=== PATIENT | male | born 1940 | race Hispanic/Latino ===

== ENCOUNTER 2019-01-24 07:41 | Inpatient (IN) | payer MEDICARE, OTHER ==
[2019-01-20 10:15] LABS: BASOPHILS # (AUTO) 0.1 (0.0-0.1); EOSINOPHILS # (AUTO) 0.3 (0.0-0.4); EOSINOPHILS % 4.3 % (0.0-6.0); HEMATOCRIT 39.9 % (38.2-49.6); HEMOGLOBIN 13.1 g/dL (14.0-18.0); LYMPHOCYTES # (AUTO) 1.8 (1.0-3.2); LYMPHOCYTES % 23.8 % (18.0-39.1); MEAN CORPUSCULAR HEMOGLOBIN 31.3 pg (28-32); MEAN CORPUSCULAR HGB CONC 32.8 g/dL (31-35); MEAN CORPUSCULAR VOLUME 95.2 fL (81-99); MONOCYTES # (AUTO) 0.5 (0.2-0.8); MONOCYTES % 6.8 % (4.4-11.3); NEUTROPHILS # (AUTO) 4.8 (2.1-6.9); NEUTROPHILS % 62.8 % (38.7-80.0); PLATELET COUNT 145 x10e3/uL (140-360); RED BLOOD COUNT 4.19 x10e6/uL (4.3-5.7)
--- NOTE | 2019-01-20 10:30 | Diagnostic Imaging Report ---
EXAMINATION: CHEST 2 VIEWS INDICATION: Pre-operative COMPARISON: None FINDINGS: LINES/TUBES:None LUNGS:The lungs are well-inflated. No focal consolidation or pulmonary edema. PLEURA:No pleural effusion or pneumothorax. MEDIASTINUM:The cardiomediastinal silhouette appears normal in size and shape. Valvular prosthesis. Atherosclerotic calcifications of the thoracic aorta. BONES/SOFT TISSUES:No acute osseous injury. Sternotomy wires intact. ABDOMEN:No free air under the diaphragm. IMPRESSION: No focal pneumonia or pulmonary edema. Signed by: Angelito Bolton MD on 01/20/2019 10:26 AM
[2019-01-20 10:33] LABS: ANION GAP 13.3 mmol/L (8-16); CALCIUM 9.7 mg/dL (8.4-10.2); CREATININE, SERUM 1.29 mg/dL (0.72-1.25); POTASSIUM 4.3 mmol/L (3.5-5.1)
[~2019-01-24] VITALS: Ht 162.6 cm; Wt 76.2 kg
[~2019-01-24 07:41] MED LIST: AMLODIPINE BESYL5 MG PO; ATORVASTATIN CA10 MG PO; BENICAR20 MG PO; FLOMAX0.4 MG PO; FUROSEMIDE40 MG PO; VITAMIN D22000 UNIT PO
--- OUTSIDE RECORDS SUMMARY | 2019-01-24 07:45 | XMS REPORT ---
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 Allergies, Adverse Reactions, Alerts Allergy Name Allergy Type Status Severity Reaction(s) Onset Date Inactive Date Treating Clinician Comments No Known Allergies DA Active U 2018-12-02 00:00:00 No Known Allergies DA Active U 2014-10-21 00:00:00 Medications This patient has no known medications. Results Test Description Test Time Test Comments Text Results Atomic Results Result Comments CHEST 2 VIEWS 2019-01-20 10:24:00 [place] [address] Patient Name: LIZABETH MORGAN MR #: [id number] : 1940 Age/Sex: 78/M Req #: [id number] Adm Physician: Ordered by: SAMAN CONNOLLY MD Report #: [id number] Location: OR Room/Bed: Procedure: [id number] DX/CHEST 2 VIEWS Exam Date: Exam Time: REPORT STATUS: Signed EXAMINATION: CHEST 2 VIEWS INDICATION: Pre-operative COMPARISON: None FINDINGS: LINES/TUBES:None LUNGS:The lungs are well- inflated. No focal consolidation or pulmonary edema. PLEURA:No pleural effusion or pneumothorax. MEDIASTINUM:The cardiomediastinal silhouette appears normal in size and shape. Valvular prosthesis. Atherosclerotic calcifications of the thoracic aorta. BONES/SOFT TISSUES:No acute osseous injury. Sternotomy wires intact. ABDOMEN:No free air under the diaphragm. IMPRESSION: No focal pneumonia or pulmonary edema. Signed by: Davonte Colbert MD on 01/20/2019 10:26 AM Dictated By: DAVONTE COLBERT MD 1026 Transcribed By: KASHMIR on 01/20/19 1026 COPY TO: SAMAN CONNOLLY MD [facility] 2018-12-06 13:21:00 RUN DATE: 12/06/18 [place] [facility] PAGE 1 RUN TIME: 1321 Specimen Inquiry RUN USER: INTERFACE PATIENT: LIZABETH MORGAN LOC: [facility]BS U #: [id number] AGE/SX: 78/M ROOM: [facility] RE12/03/18REG DR: Trav Bolaños MD : 42 BED: B DIS: STATUS: ADM IN TLOC: SPEC #: [id number] RECD: 12/05/18 STATUS: YADIRA RODRIGUEZ #: [id number] CARLA: 12/03/18- SUBM DR: Nishant Méndez MD ENTERED: 12/05/18 SP TYPE: GALLBLADD OTHR DR: Jeremi Byers MD, David N MDORDERED: GROSS COPIES TO: Nishant Méndez MD [address] [place] [address] Jeremi Byers MD [address] [place] [address] Nishant Valle MD [address] [place] [address] MARKERS: ABNORMAL TISSUE, GALLBLADDER PROCEDURES: GROSS (12/06/18) TISSUES: GALLBLADDER, NOS CLINICAL HISTORY COLLECTION DATE: 12/03/18 ACUTE CHOLECYSTITIS FINAL DIAGNOSIS Gallbladder, cholecystectomy: CHOLELITHIASIS SEVERE ACUTE AND CHRONIC CHOLECYSTITIS NEGATIVE FOR MALIGNANCY DMW/sm A 54701 CONTINUED ON NEXT PAGE RUN DATE: 12/06/18 [place] [employer] [facility] PAGE 2 RUN TIME: 1321 Specimen Inquiry RUN USER: INTERFACE SPEC #: [id number] PATIENT: LIZABETH MORGAN #[id number] ([facility]) MACROSCOPIC The specimen is received in formalin, labeled with the patient's name, and identified as "gallbladder". It consists of a transected gallbladder measuring 7.3 x 3.8 x 2 cm. The serosal surface has a mottled appearance. Within the gallbladder and within the container are multiple black spiculated gallstones and black calciferous material. The gallstones measure from 0.1 to 0.4 cm. The gallbladder mucosa has a finely trabeculated appearance. The gallbladder wall measures up to 0.5 cm in thickness. Samples of the specimen are submitted for microscopic evaluation in a single cassette. GROSS PERFORMED AT [facility] [address] [place] [phone] (p)[phone] MICROSCOPIC All of the stains, including any controls performed, stain appropriately. MICROSCOPIC PERFORMED AT [facility] [address] [place] [phone] (p)[phone] PERFORMING SITE Diagnosis performed at: [facility], [place] [phone] Signed SIGNATURE ON FILE Sue Tamez MD 12/06/18 9221 END OF REPORT BASIC METABOLIC PANEL 2018-12-06 09:23:00 SODIUM (test code=NA) 143 mmol/L 136-145 POTASSIUM (test code=K) 4.2 mmol/L 3.5-5.1 CHLORIDE (test code=CL) 106.0 mmol/L 98-107 CARBON DIOXIDE (test code=CO2) 28.0 mmol/L 21-32 ANION GAP (test code=GAP) 13.2 10-20 GLUCOSE (test code=GLU) 118 mg/dL 74-106 BLOOD UREA NITROGEN (test code=BUN) 22 mg/dL 7-18 GLOMERULAR FILTRATION RATE (test code=GFR) 42 mL/min >=60 Estimated GFR by using Modified MDRD formula.Chronic kidney disease is defined as either kidney damageor GFR <60 mL/min/1.73 m2 for >3 months. CREATININE (test code=CREAT) 1.60 mg/dL 0.7-1.3 BUN/CREATININE RATIO (test code=BUN/CREA) 13.4 10-20 CALCIUM (test code=CA) 8.6 mg/dL 8.5-10.1 BASIC METABOLIC [id number] 09:08:00* Test Item Value Reference Range Comments SODIUM (test code=NA) 143 mmol/L 136-145 POTASSIUM (test code=K) 4.2 mmol/L 3.5-5.1 CHLORIDE (test code=CL) 106.0 mmol/L 98-107 CARBON DIOXIDE (test code=CO2) mmol/L 21-32 ANION GAP (test code=GAP) 10-20 GLUCOSE (test code=GLU) mg/dL 74-106 BLOOD UREA NITROGEN (test code=BUN) mg/dL 7-18 GLOMERULAR FILTRATION RATE (test code=GFR) mL/min >=60 CREATININE (test code=CREAT) mg/dL 0.7-1.3 BUN/CREATININE RATIO (test code=BUN/CREA) 10-20 CALCIUM (test code=CA) mg/dL 8.5-10.1 CBC W/AUTO [id number] 09:01:00* Test Item Value Reference Range Comments WHITE BLOOD CELL (test code=WBC) 6.1 K/mm3 4.5-12.5 RED BLOOD CELL (test code=RBC) 4.15 mill/mm3 4.0-5.8 HEMOGLOBIN (test code=HGB) 13.2 gram/dL 13.0-17.5 HEMATOCRIT (test code=HCT) 39.1 % 42.0-52.0 MEAN CELL VOLUME (test code=MCV) 94.2 fL 80-98 MEAN CELL HGB (test code=MCH) 31.8 picogram 27.0-33.0 MEAN CELL HGB CONCETRATION (test code=MCHC) 33.8 gram/dL 33.0-36.0 RED CELL DISTRIBUTION WIDTH (test code=RDW) 13.4 % 11.6-16.2 RED CELL DISTRIBUTION WIDTH SD (test code=RDW-SD) 46.2 fL 37.0-51.0 PLATELET COUNT (test code=PLT) 155 K/mm3 150-450 RESULT VERIFIED BY REPEAT ANALYSIS MEAN PLATELET VOLUME (test code=MPV) 11.3 fL 6.7-11.0 NEUTROPHIL % (test code=NT%) 61.8 % 39.0-69.0 IMMATURE GRANULOCYTE % (test code=IG%) 0.5 % 0.0-5.0 LYMPHOCYTE % (test code=LY%) 24.9 % 25.0-55.0 MONOCYTE % (test code=MO%) 7.9 % 0.0-10.0 EOSINOPHIL % (test code=EO%) 4.1 % 0.0-5.0 BASOPHIL % (test code=BA%) 0.8 % 0.0-1.0 NUCLEATED RBC % (test code=NRBC%) 0.0 % 0-0 NEUTROPHIL # (test code=NT#) 3.74 K/mm3 1.8-7.7 IMMATURE GRANULOCYTE # (test code=IG#) 0.03 x10 3/uL 0-0.03 LYMPHOCYTE # (test code=LY#) 1.51 K/mm3 1.0-5.0 MONOCYTE # (test code=MO#) 0.48 K/mm3 0-0.8 EOSINOPHIL # (test code=EO#) 0.25 K/mm3 0.0-0.5 BASOPHIL # (test code=BA#) 0.05 K/mm3 0.0-0.2 NUCLEATED RBC # (test code=NRBC#) 0.00 K/mm3 0.0-0.1 MANUAL DIFF REQUIRED (test code=MDIFF) NO BASIC METABOLIC [id number] 13:31:00* Test Item Value Reference Range Comments SODIUM (test code=NA) 137 mmol/L 136-145 POTASSIUM (test code=K) 4.1 mmol/L 3.5-5.1 CHLORIDE (test code=CL) 106.0 mmol/L 98-107 CARBON DIOXIDE (test code=CO2) 23.0 mmol/L 21-32 ANION GAP (test code=GAP) 12.1 10-20 GLUCOSE (test code=GLU) 100 mg/dL 74-106 BLOOD UREA NITROGEN (test code=BUN) 25 mg/dL 7-18 GLOMERULAR FILTRATION RATE (test code=GFR) 42 mL/min >=60 Estimated GFR by using Modified MDRD formula.Chronic kidney disease is defined as either kidney damageor GFR <60 mL/min/1.73 m2 for >3 months. CREATININE (test code=CREAT) 1.60 mg/dL 0.7-1.3 BUN/CREATININE RATIO (test code=BUN/CREA) 15.6 10-20 CALCIUM (test code=CA) 8.3 mg/dL 8.5-10.1 BASIC METABOLIC [id number] 13:29:00* Test Item Value Reference Range Comments SODIUM (test code=NA) 137 mmol/L 136-145 POTASSIUM (test code=K) 4.1 mmol/L 3.5-5.1 CHLORIDE (test code=CL) 106.0 mmol/L 98-107 CARBON DIOXIDE (test code=CO2) mmol/L 21-32 ANION GAP (test code=GAP) 10-20 GLUCOSE (test code=GLU) mg/dL 74-106 BLOOD UREA NITROGEN (test code=BUN) mg/dL 7-18 GLOMERULAR FILTRATION RATE (test code=GFR) mL/min >=60 CREATININE (test code=CREAT) mg/dL 0.7-1.3 BUN/CREATININE RATIO (test code=BUN/CREA) 10-20 CALCIUM (test code=CA) mg/dL 8.5-10.1 CBC W/O [id number] 13:03:00* Test Item Value Reference Range Comments WHITE BLOOD CELL (test code=WBC) 12.2 K/mm3 4.5-12.5 RED BLOOD CELL (test code=RBC) 4.11 mill/mm3 4.0-5.8 HEMOGLOBIN (test code=HGB) 13.1 gram/dL 13.0-17.5 HEMATOCRIT (test code=HCT) 37.8 % 42.0-52.0 MEAN CELL VOLUME (test code=MCV) 92.0 fL 80-98 MEAN CELL HGB (test code=MCH) 31.6 picogram 27.0-33.0 MEAN CELL HGB CONCETRATION (test code=MCHC) 34.4 gram/dL 33.0-36.0 RED CELL DISTRIBUTION WIDTH (test code=RDW) 12.9 % 11.6-16.2 PLATELET COUNT (test code=PLT) 116 K/mm3 150-450 MEAN PLATELET VOLUME (test code=MPV) 11.1 fL 6.7-11.0 CBC W/O [id number] 12:52:00* Test Item Value Reference Range Comments WHITE BLOOD CELL (test code=WBC) K/mm3 4.5-12.5 RED BLOOD CELL (test code=RBC) mill/mm3 4.0-5.8 HEMOGLOBIN (test code=HGB) 13.1 gram/dL 13.0-17.5 HEMATOCRIT (test code=HCT) % 42.0-52.0 MEAN CELL VOLUME (test code=MCV) fL 80-98 MEAN CELL HGB (test code=MCH) picogram 27.0-33.0 MEAN CELL HGB CONCETRATION (test code=MCHC) gram/dL 33.0-36.0 RED CELL DISTRIBUTION WIDTH (test code=RDW) % 11.6-16.2 PLATELET COUNT (test code=PLT) K/mm3 150-450 MEAN PLATELET VOLUME (test code=MPV) fL 6.7-11.0 BASIC METABOLIC [id number] 05:30:00* Test Item Value Reference Range Comments SODIUM (test code=NA) 139 mmol/L 136-145 POTASSIUM (test code=K) 4.4 mmol/L 3.5-5.1 CHLORIDE (test code=CL) 105.0 mmol/L 98-107 CARBON DIOXIDE (test code=CO2) 24.0 mmol/L 21-32 ANION GAP (test code=GAP) 14.4 10-20 GLUCOSE (test code=GLU) 108 mg/dL 74-106 BLOOD UREA NITROGEN (test code=BUN) 18 mg/dL 7-18 GLOMERULAR FILTRATION RATE (test code=GFR) 45 mL/min >=60 Estimated GFR by using Modified MDRD formula.Chronic kidney disease is defined as either kidney damageor GFR <60 mL/min/1.73 m2 for >3 months. CREATININE (test code=CREAT) 1.50 mg/dL 0.7-1.3 BUN/CREATININE RATIO (test code=BUN/CREA) 12.2 10-20 CALCIUM (test code=CA) 9.1 mg/dL 8.5-10.1 BASIC METABOLIC [id number] 05:26:00* Test Item Value Reference Range Comments SODIUM (test code=NA) 139 mmol/L 136-145 POTASSIUM (test code=K) 4.4 mmol/L 3.5-5.1 CHLORIDE (test code=CL) 105.0 mmol/L 98-107 CARBON DIOXIDE (test code=CO2) mmol/L 21-32 ANION GAP (test code=GAP) 10-20 GLUCOSE (test code=GLU) mg/dL 74-106 BLOOD UREA NITROGEN (test code=BUN) mg/dL 7-18 GLOMERULAR FILTRATION RATE (test code=GFR) mL/min >=60 CREATININE (test code=CREAT) mg/dL 0.7-1.3 BUN/CREATININE RATIO (test code=BUN/CREA) 10-20 CALCIUM (test code=CA) mg/dL 8.5-10.1 CBC W/AUTO [id number] 05:25:00* Test Item Value Reference Range Comments WHITE BLOOD CELL (test code=WBC) 9.3 K/mm3 4.5-12.5 RED BLOOD CELL (test code=RBC) 4.57 mill/mm3 4.0-5.8 HEMOGLOBIN (test code=HGB) 14.5 gram/dL 13.0-17.5 HEMATOCRIT (test code=HCT) 42.4 % 42.0-52.0 MEAN CELL VOLUME (test code=MCV) 92.8 fL 80-98 MEAN CELL HGB (test code=MCH) 31.7 picogram 27.0-33.0 MEAN CELL HGB CONCETRATION (test code=MCHC) 34.2 gram/dL 33.0-36.0 RED CELL DISTRIBUTION WIDTH (test code=RDW) 13.0 % 11.6-16.2 RED CELL DISTRIBUTION WIDTH SD (test code=RDW-SD) 44.2 fL 37.0-51.0 PLATELET COUNT (test code=PLT) 94 K/mm3 150-450 MEAN PLATELET VOLUME (test code=MPV) 11.2 fL 6.7-11.0 NEUTROPHIL % (test code=NT%) 70.0 % 39.0-69.0 IMMATURE GRANULOCYTE % (test code=IG%) 0.6 % 0.0-5.0 LYMPHOCYTE % (test code=LY%) 17.3 % 25.0-55.0 MONOCYTE % (test code=MO%) 11.1 % 0.0-10.0 EOSINOPHIL % (test code=EO%) 0.4 % 0.0-5.0 BASOPHIL % (test code=BA%) 0.6 % 0.0-1.0 NUCLEATED RBC % (test code=NRBC%) 0.0 % 0-0 NEUTROPHIL # (test code=NT#) 6.47 K/mm3 1.8-7.7 IMMATURE GRANULOCYTE # (test code=IG#) 0.06 x10 3/uL 0-0.03 LYMPHOCYTE # (test code=LY#) 1.60 K/mm3 1.0-5.0 MONOCYTE # (test code=MO#) 1.03 K/mm3 0-0.8 EOSINOPHIL # (test code=EO#) 0.04 K/mm3 0.0-0.5 BASOPHIL # (test code=BA#) 0.06 K/mm3 0.0-0.2 NUCLEATED RBC # (test code=NRBC#) 0.00 K/mm3 0.0-0.1 CBC W/AUTO [id number] 05:14:00* Test Item Value Reference Range Comments WHITE BLOOD CELL (test code=WBC) K/mm3 4.5-12.5 RED BLOOD CELL (test code=RBC) mill/mm3 4.0-5.8 HEMOGLOBIN (test code=HGB) 14.5 gram/dL 13.0-17.5 HEMATOCRIT (test code=HCT) 42.4 % 42.0-52.0 MEAN CELL VOLUME (test code=MCV) fL 80-98 MEAN CELL HGB (test code=MCH) picogram 27.0-33.0 MEAN CELL HGB CONCETRATION (test code=MCHC) gram/dL 33.0-36.0 RED CELL DISTRIBUTION WIDTH (test code=RDW) % 11.6-16.2 RED CELL DISTRIBUTION WIDTH SD (test code=RDW-SD) fL 37.0-51.0 PLATELET COUNT (test code=PLT) K/mm3 150-450 MEAN PLATELET VOLUME (test code=MPV) fL 6.7-11.0 NEUTROPHIL % (test code=NT%) % 39.0-69.0 IMMATURE GRANULOCYTE % (test code=IG%) % 0.0-5.0 LYMPHOCYTE % (test code=LY%) % 25.0-55.0 MONOCYTE % (test code=MO%) % 0.0-10.0 EOSINOPHIL % (test code=EO%) % 0.0-5.0 BASOPHIL % (test code=BA%) % 0.0-1.0 NEUTROPHIL # (test code=NT#) K/mm3 1.8-7.7 LYMPHOCYTE # (test code=LY#) K/mm3 1.0-5.0 MONOCYTE # (test code=MO#) K/mm3 0-0.8 EOSINOPHIL # (test code=EO#) K/mm3 0.0-0.5 BASOPHIL # (test code=BA#) K/mm3 0.0-0.2 [id number] 18:02:00* Test Item Value Reference Range Comments TROPONIN-I (test code=TROPI) <0.015 ng/mL 0-0.045 COMMENTS TO SEED AND FERTILIZER SPECIALIST: COLLECT 3 HOURS AFTER PREVIOUS [id number] 14:04:00* Test Item Value Reference Range Comments TROPONIN-I (test code=TROPI) <0.015 ng/mL 0-0.045 COMMENTS TO SEED AND FERTILIZER SPECIALIST: COLLECT 3 HOURS AFTER PREVIOUS SAMPLE- US ABDOMEN [id number] 10:00:00 Name: LIZABETH MORGAN [facility] : 1940 Age/S: 78 / M [address] Unit #: [id number] Loc: [place] [address] Phys: Era Wetzel MD Acct: [id number] Dis Date: Status: ADM IN PHONE #: [phone] Exam Date: 12/02/2018 0940 FAX #: [phone] Reason: pain, elev bili EXAMS: CPT CODE: [id number] US ABDOMEN LTD [id number] REASON FOR EXAM: pain, elev bili EXAM ORDER DATE: 12/02/2018 8:58 AM Attending M.D.: Era Wetzel MD PROCEDURE: - US ABDOMEN LTD Technique: Grayscale and color Doppler images images of the right-upper quadrant of the abdomen. Comparison: CT of the abdomen and pelvis October 22, 2014 is available for review. FINDINGS: Aorta and IVC: Patent and grossly normal in caliber. Liver: Size: 13.7 cm craniocaudally Parenchyma and contour: Smooth contour. Normal echogenicity. Cysts and/or masses: None. Intrahepatic bile ducts: No intrahepatic biliary ductal dilation Common bile duct: 3.8 mm in diameter. No echogenic filling defects in visualized duct. Gallbladder: Stones/sludge: Intraluminal echogenicities compatible with stones. Wall: 3.2 mm in thickness. No discontinuity. No polyps. No pericholecystic fluid. No hyperemia. Sonographic Berkowitz's sign: Positive Portal vein: Portal vein caliber is within normal limits. Portal vein is patent with hepatopetal flow. Pancreas: Incompletely visualized. However the visualized portions are grossly within normal limits. Right kidney: parenchyma ech ogenicity: Normal echogenicity size: 10.5 x 5.9 x 5.7 cm stones: no ne PAGE 1 Signed Report (CONTINUED ) Name: LIZABETH MORGAN [facility] OB: 1940 Age/S: 78 / M [address] Unit #: [id number] Loc: [place] [address] Phys: Era Wetzel MD Acct: [id number] Dis Date: Status: ADM IN PHONE #: [phone] Exam Date: 12/02/2018 0940 FAX #: Reason: pain, elev bili EXAMS: CPT CODE: [id number] US ABDOMEN LTD 73346 <Continued> cysts/masses: none hydronephrosis: none Ascites/pleural effusions: None IMPRESSION: Cholelithiasis with po sitive sonographic Berkowitz's sign compatible with acute cholecystitis. at 1000 Reported and signed by: Naeem Fernández MD CC: Era Wetzel MD Technologist: BLAZE YATES RT(R),RDMS Trnscb Date/Time: 12/03/19 19 (1000) t.SDR.RR31 Orig Print D/T: S: 12/02/2018 (1003) Probe: PAGE 2 Signed Report B-TYPE NATRIURETIC [id number] 08:55:00* Test Item Value Reference Range Comments B-TYPE NATRIURETIC PEPTIDE (test code=BNP) 87.55 pgram/mL 0-100 BASIC METABOLIC [id number] 08:33:00* Test Item Value Reference Range Comments SODIUM (test code=NA) 141 mmol/L 136-145 POTASSIUM (test code=K) 4.6 mmol/L 3.5-5.1 CHLORIDE (test code=CL) 109.0 mmol/L 98-107 CARBON DIOXIDE (test code=CO2) 23.0 mmol/L 21-32 ANION GAP (test code=GAP) 13.6 10-20 GLUCOSE (test code=GLU) 148 mg/dL 74-106 BLOOD UREA NITROGEN (test code=BUN) 26 mg/dL 7-18 GLOMERULAR FILTRATION RATE (test code=GFR) 49 mL/min >=60 Estimated GFR by using Modified MDRD formula.Chronic kidney disease is defined as either kidney damageor GFR <60 mL/min/1.73 m2 for >3 months. CREATININE (test code=CREAT) 1.40 mg/dL 0.7-1.3 BUN/CREATININE RATIO (test code=BUN/CREA) 18.7 10-20 CALCIUM (test code=CA) 9.8 mg/dL 8.5-10.1 HEPATIC FUNCTION [id number] 08:33:00* Test Item Value Reference Range Comments TOTAL PROTEIN (test code=PROT) 7.4 gram/dL 6.4-8.2 ALBUMIN (test code=ALB) 3.8 g/dL 3.4-5.0 GLOBULIN (test code=GLOB) 3.6 gram/dL 2.7-4.2 ALBUMIN/GLOBULIN RATIO (test code=A/G) 1.1 0.75-1.50 BILIRUBIN TOTAL (test code=BILT) 1.40 mg/dL 0.0-1.0 BILIRUBIN DIRECT (test code=BILD) 0.33 mg/dL 0.0-0.20 SGOT/AST (test code=AST) 19 IUnit/L 15-37 SGPT/ALT (test code=ALT) 27 IUnit/L 12-78 ALKALINE PHOSPHATASE TOTAL (test code=ALKP) 61 IUnit/L 45-117 Note change in reference range due to change in reagent. [id number] 08:33:00* Test Item Value Reference Range Comments LIPASE (test code=LIP) 170 U/L 73.0-393.0 [id number] 08:33:00* Test Item Value Reference Range Comments MAGNESIUM (test code=MAG) 2.2 mg/dL 1.8-2.4 [id number] 08:33:00* Test Item Value Reference Range Comments TROPONIN-I (test code=TROPI) <0.015 ng/mL 0-0.045 BASIC METABOLIC [id number] 08:21:00* Test Item Value Reference Range Comments SODIUM (test code=NA) 141 mmol/L 136-145 POTASSIUM (test code=K) 4.6 mmol/L 3.5-5.1 CHLORIDE (test code=CL) 109.0 mmol/L 98-107 CARBON DIOXIDE (test code=CO2) mmol/L 21-32 ANION GAP (test code=GAP) 10-20 GLUCOSE (test code=GLU) mg/dL 74-106 BLOOD UREA NITROGEN (test code=BUN) mg/dL 7-18 GLOMERULAR FILTRATION RATE (test code=GFR) mL/min >=60 CREATININE (test code=CREAT) mg/dL 0.7-1.3 BUN/CREATININE RATIO (test code=BUN/CREA) 10-20 CALCIUM (test code=CA) mg/dL 8.5-10.1 HEPATIC FUNCTION [id number] 08:21:00* Test Item Value Reference Range Comments TOTAL PROTEIN (test code=PROT) gram/dL 6.4-8.2 ALBUMIN (test code=ALB) g/dL 3.4-5.0 GLOBULIN (test code=GLOB) gram/dL 2.7-4.2 ALBUMIN/GLOBULIN RATIO (test code=A/G) 0.75-1.50 BILIRUBIN TOTAL (test code=BILT) mg/dL 0.0-1.0 BILIRUBIN DIRECT (test code=BILD) mg/dL 0.0-0.20 SGOT/AST (test code=AST) IUnit/L 15-37 SGPT/ALT (test code=ALT) IUnit/L 12-78 ALKALINE PHOSPHATASE TOTAL (test code=ALKP) IUnit/L 45-117 [id number] 08:21:00* Test Item Value Reference Range Comments LIPASE (test code=LIP) U/L 73.0-393.0 [id number] 08:21:00* Test Item Value Reference Range Comments MAGNESIUM (test code=MAG) mg/dL 1.8-2.4 [id number] 08:21:00* Test Item Value Reference Range Comments TROPONIN-I (test code=TROPI) ng/mL 0-0.045 PROTHROMBIN [id number] 08:14:00* Test Item Value Reference Range Comments PROTHROMBIN TIME PATIENT (test code=PTP) 13.4 seconds 9.0-14.0 INTERNATIONAL NORMAL RATIO (test code=INR) 1.1 0.8-1.2 The therapeutic range for oral anticoagulant therapy formost indications is an international normalized ratio (INR)of between 2.0 and 3.0. The recommended therapeutic INRrange for various clinical situations is listed below: Clinical Situation INR range Pulmonary e mbolism treatment (2.0-3.0)Venous thrombosis treatmentVenous thrombosis prophylaxis (high risk surgery)Prevention of systemic embolism from: Acute myocardial infarction Valvular heart disease Atrial fibrillation Mechanical prosthetic heart valves (2.5-3.5) IS PATIENT ON ANTICOAGULANTS? NTHROMBOPLASTIN TIME [id number] 08:14:00* Test Item Value Reference Range Comments THROMBOPLASTIN TIME PARTIAL (test code=PTT) 25.3 seconds 25.0-36.5 IS PATIENT ON ANTICOAGULANTS? NCBC W/O [id number] 07:51:00* Test Item Value Reference Range Comments WHITE BLOOD CELL (test code=WBC) 7.9 K/mm3 4.5-12.5 RED BLOOD CELL (test code=RBC) 4.35 mill/mm3 4.0-5.8 HEMOGLOBIN (test code=HGB) 14.0 gram/dL 13.0-17.5 HEMATOCRIT (test code=HCT) 40.2 % 42.0-52.0 MEAN CELL VOLUME (test code=MCV) 92.4 fL 80-98 MEAN CELL HGB (test code=MCH) 32.2 picogram 27.0-33.0 MEAN CELL HGB CONCETRATION (test code=MCHC) 34.8 gram/dL 33.0-36.0 RED CELL DISTRIBUTION WIDTH (test code=RDW) 13.2 % 11.6-16.2 PLATELET COUNT (test code=PLT) 130 K/mm3 150-450 MEAN PLATELET VOLUME (test code=MPV) 10.7 fL 6.7-11.0 CBC W/O [id number] 07:50:00* Test Item Value Reference Range Comments WHITE BLOOD CELL (test code=WBC) K/mm3 4.5-12.5 RED BLOOD CELL (test code=RBC) mill/mm3 4.0-5.8 HEMOGLOBIN (test code=HGB) 14.0 gram/dL 13.0-17.5 HEMATOCRIT (test code=HCT) % 42.0-52.0 MEAN CELL VOLUME (test code=MCV) fL 80-98 MEAN CELL HGB (test code=MCH) picogram 27.0-33.0 MEAN CELL HGB CONCETRATION (test code=MCHC) gram/dL 33.0-36.0 RED CELL DISTRIBUTION WIDTH (test code=RDW) % 11.6-16.2 PLATELET COUNT (test code=PLT) K/mm3 150-450 MEAN PLATELET VOLUME (test code=MPV) fL 6.7-11.0 TROPONIN I [id number] 07:47:00* Test Item Value Reference Range Comments TROPONIN I RAPID (test code=TROPIRAP) 0.02 ng/mL <0.08 Please Note New Reference Range 0.00-0.079 ng/mL - Negative>or=0.08 ng/mL - Positive The use of serial sampling and testing protocol is arecommended practice.An elevated troponin level alone is often not sufficient fordiagnosis of myocardial infarction. Troponin results obtained by different assays may vary.Evaluation of the extent of myocardial damage based onincrease of troponin would be valid only if similarmethodology is used. - XR CHEST 1 [id number] 07:41:00 FAX: Era Wetzel MD [phone] [place]: St: PRE Name: LIZABETH CHO [facility] : [birth year] Age/S: 78/M [address] [facility] Unit #: [id number] Loc: [place] [address] Phys: Era Wetzel MD Acct: [id number] Dis Date: Status: PRE ER PHONE #: [phone] Exam Date: 12/02/2018726 FAX #: [phone] Reason: CHEST PAIN EXAMS: CPT CODE: [id number] XR CHEST 1 V 44949 HISTORY: CHEST PAIN TECHNIQUE: AP chest x-ray COMPARISON: 10/21/14 FINDING S: No airspace consolidation or pleural effusion. Cardiomegaly. Atherosclerotic vascular calcification of the thoracic aorta. Sternoto my wires. Thoracic spondylosis. IMPRESSION: No radiographic evidence of acute cardiopulmonary process. Electronica lly Signed by Teresa Olvera D.O. on 12/02/2018 at 0741 Repor tony and signed by: Teresa Olvera D.O. CC: Era Wetzel MD Technologist: PHAM GREER JR Trnarrd Date/Time/By: 12/02/2018 (0741) : By: Gabbie DP1 Orig Print D/T: S: 12/02/2018 (0744) PAGE 1 Signed Report
[2019-01-24] MEDS ORDERED: CEFAZOLIN SOD 1 GM/NS 50ML 50 ML IV ONE (08:14)
[2019-01-24] MEDS ORDERED: B&O 60MG R/S 60 MG SUPP PR ONE (08:57)
[2019-01-24] MEDS ORDERED: IOPAMIDOL 300MG/ML 50ML INFUS..BTL IV ONE (08:57)
[2019-01-24] MEDS ORDERED: TOBRAMYCIN 40 MG/ML 2ML VIAL ONE (09:57)
[2019-01-24] MEDS ORDERED: SODIUM CHLORIDE 0.9% 50ML 0 ML ONE (10:00)
--- NOTE | 2019-01-24 13:07 | Operative Report ---
DATE OF PROCEDURE: 01/24/2019 SURGEON: Elkin Caldwell MD SERVICE: Urology. PREOPERATIVE DIAGNOSES: 1. Benign prostatic hyperplasia with obstruction. 2. Urinary tract infection. 3. Microhematuria. POSTOPERATIVE DIAGNOSES: 1. Benign prostatic hyperplasia with obstruction. 2. Urinary tract infection. 3. Microhematuria. 4. Bladder diverticula. 5. Multiple prostatic calculi. OPERATIONS PERFORMED: 1. Cystoscopy and bilateral retrograde pyelograms under fluoroscopic control. 2. X-ray interpretation, radiologist not present. 3. Supervision of fluoroscopy, radiologist not present. 4. Transurethral resection with plasma of blocking prostate. 5. Removal of multiple prostatic stones. INVESTIGATIVE ANALYST: None. ANESTHESIA: General. CLINICAL INDICATION NOTE: A 79-year-old patient, who was brought for treatment of urinary retention. He has a Avitia catheter in place. The patient has a history of UTI as well as microhematuria. He was brought for treatment of the prostate and assessment of the upper tract. Procedure was discussed with the patient. Potential benefit and complication discussed, explained and accepted. DESCRIPTION OF PROCEDURE AND FINDINGS: After the proper level of anesthesia was achieved, the patient was placed in lithotomy position, prepped and draped in a sterile fashion. Urethra inspected is unremarkable. Bladder outlet was obstructed by enlarged prostate composed of the three lobe prostate. Bladder is quite trabeculated. Several bladder diverticula were present. No tumour was seen. A cone-tipped catheter was used and bilateral retrograde pyelograms were done. No intrinsic lesions were identified bilaterally. Drainage was prompt. Following this, the scope was removed. The resectoscope was inserted and a plasma instrument was used to remove the blocking prostatic tissue. The middle lobe was treated 1st and then the lateral lobe. Care was taken not to be distal to the verumontanum. Any visible bleeding points were carefully coagulated. Multiple prostatic calculi were present and removed as well. Following this, a [address] Avitia catheter was inserted, connected to continuous irrigation with normal saline. The patient tolerated the procedure well and was transferred in satisfactory condition to recovery room. Blood loss was minimal. Postop instructions were given as well as all this to the nurse in recovery. The patient was given followup in the office. MD PRASANNA Posada/WATSON /[id number]
--- NOTE | 2019-01-24 16:30 | NUR ---
PT ARRIVED BY STRETCHER TO ROOM 105. PT IS AAOX3, RR EVEN AND NON-LABORED, PT TRANSFERRED BY SLIDE BOARD TO HOSPITAL BED. ORIENTED PT TO HOSPITAL BED, CALL LIGHT, PHONE, AND BED CONTROLS. BED IN LOW LOCKED POSITION, SIDE RAILS UPX2, CALL LIGHT AND PHONE WITHIN REACH.
[2019-01-24 17:09] VITALS: BP 122/59
[2019-01-24] MEDS ORDERED: SODIUM CHLORIDE 0.9% 1000ML 1,000 ML IV SCH (17:30)
[2019-01-24] MEDS ORDERED: ACETAMINOPHEN 325 MG TAB PO PRN (17:30)
[2019-01-24] MEDS ORDERED: SEVOFLURANE INHAL SOLN 250 ML PEN BTL ONE (18:30)
[2019-01-24] MEDS ORDERED: GLYCOPYRROLATE INJ 1MG/ 5 ML SYR ONE (18:30)
[2019-01-24] MEDS ORDERED: DEXAMETHASONE SOD PHOS INJ 4 MG/ML VIAL ONE (18:30)
[2019-01-24] MEDS ORDERED: ONDANSETRON HCL INJ 2MG/ML 2ML 2 MG/ML VIAL ONE (18:30)
[2019-01-24] MEDS ORDERED: PROPOFOL IV EMULSION 10 MG/ML 20 ML VIAL ONE (18:30)
[2019-01-24] MEDS ORDERED: LIDOCAINE HCL 2% LOCAL INJ 5 ML SDV VIAL INJ ONE (18:30)
[2019-01-24] MEDS ORDERED: FENTANYL CITRATE/PF 100MCG/2 ML INJ ONE (18:56)
--- NOTE | 2019-01-24 19:00 | NUR ---
RECEIVED PATIENT IN BEDSIDE SHIFT REPORT. CBI RUNNING, PINK URINE NOTED. R HAND 20G IV RUNNING NS @ 60ML/HR. NO PAIN REPORTED. NO S&S OF DISTRESS NOTED. BED LOCKED IN LOWEST POSITION, SIDE RAILS UPX2, CALL LIGHT IN REACH.
[2019-01-24 19:20] VITALS: BP 122/58
[2019-01-24 20:00] VITALS: BP 122/58
--- NOTE | 2019-01-24 20:13 | NUR ---
report given to oncoming nurse, pt stable at this time
[2019-01-24 21:02] VITALS: BP 122/58
[2019-01-25] VITALS (7 sets, daily range): BP systolic 112–129; BP diastolic 56–62
--- NOTE | 2019-01-25 02:45 | NUR ---
URINE NOTED TO BE YELLOW WITH A VERY SLIGHT PINK TINGE. WILL CONTINUE TO MONITOR.
[2019-01-25 05:21] LABS: BASOPHILS % 0.1 % (0.0-1.0); EOSINOPHILS % 0.1 % (0.0-6.0); HEMATOCRIT 34.9 % (38.2-49.6); HEMOGLOBIN 11.7 g/dL (14.0-18.0); LYMPHOCYTES # (AUTO) 1.2 (1.0-3.2); LYMPHOCYTES % 12.1 % (18.0-39.1); MEAN CORPUSCULAR HEMOGLOBIN 31.2 pg (28-32); MEAN CORPUSCULAR HGB CONC 33.5 g/dL (31-35); MEAN CORPUSCULAR VOLUME 93.1 fL (81-99); MONOCYTES # (AUTO) 0.6 (0.2-0.8); MONOCYTES % 6.1 % (4.4-11.3); NEUTROPHILS % 81.3 % (38.7-80.0); PLATELET COUNT 136 x10e3/uL (140-360); RED BLOOD COUNT 3.75 x10e6/uL (4.3-5.7); RED CELL DISTRIBUTION WIDTH 12.9 % (11.7-14.4)
[2019-01-25 05:39] LABS: ANION GAP 13.8 mmol/L (8-16); CALCIUM 8.9 mg/dL (8.4-10.2); CREATININE, SERUM 1.43 mg/dL (0.72-1.25); POTASSIUM 4.8 mmol/L (3.5-5.1)
[2019-01-25 08:30] LABS: CHOL/HDL RATIO 3.4 (3.9-4.7)
--- NOTE | 2019-01-25 09:16 | NUR ---
SPOKE WITH MD CONNOLLY TODAY WHO STATES IF CARDIAC CLEARS PT , PT CAN DC HOME TODAY WITH REED CATH
--- NOTE | 2019-01-25 11:35 | NUR ---
MD WEBBER CLEARED PT FROM CARDIAC STANDPOINT STATES PT CAN HAVE BP MEDICATIONS DUE THIS AM
[2019-01-25] MEDS: OLMESARTAN 20 MG TAB PO SCH (12:23)
--- NOTE | 2019-01-25 15:48 | History and Physical ---
PRIMARY CARE PHYSICIAN: Koko Nails MD. The patient is transferred to my service from Dr. Tony Ravi due to health care insurance. The patient is status post TURP procedure done with Dr. Hardy Caldwell. HISTORY OF PRESENT ILLNESS: The patient is a 79-year-old male, status post TURP procedure. The patient is otherwise stable. He is comfortable. He has taken a shower now. The patient has asymptomatic bradycardia heart rate in the 49-53. The patient was seen by joint yarner previously. The patient was cleared for surgery prior to his procedure. The patient is otherwise stable now, asymptomatic, taken a shower. The patient will be placed on telemetry to be monitored closely. PAST MEDICAL HISTORY: Hypertension, enlarged prostate, and dyslipidemia. PAST SURGICAL HISTORY: 1. Status post TURP. 2. Right leg fracture repair. 3. Hemorrhoidectomy. 4. Aortic valve replacement tissue valve in 2014 for aortic stenosis. 5. Cholecystectomy. 6. Colon surgery. SOCIAL HISTORY: The patient does not smoke or use alcohol. He lives with his spouse. ALLERGIES: TO ACETAMINOPHEN, CODEINE, AND LEVAQUIN. HOME MEDICATIONS: List is reviewed. REVIEW OF SYSTEMS: As mentioned above. PHYSICAL EXAMINATION: VITAL SIGNS: Temperature is 98, blood pressure 127/59, pulse rate is 49, and respiration 18. GENERAL: The patient is no acute distress. He is asymptomatic. HEENT: Normocephalic, atraumatic. Anicteric. NECK: Supple grossly. PULMONARY: Clear. CARDIOVASCULAR: Bradycardia. ABDOMEN: Soft. EXTREMITIES: No cyanosis or edema. Avitia catheter in place. Continuous irrigation. NEUROLOGIC: No focal deficit. LABORATORY DATA: Sodium is 137, potassium 4.3, chloride 104, bicarb 24, BUN is 20, creatinine 1.4, and glucose is 130. WBC 9.8, hemoglobin 11.7, hematocrit 34.9, and platelet is 136. IMPRESSION: 1. Status post TURP procedure. 2. Bradycardia, most likely chronic, but we will consult Dr. Jeremi Byers his joint yarner. 3. Continue with irrigation. MD VAUGHN Hastings/WATSON /[id number]
[2019-01-25] MEDS: AMLODIPINE BESYLATE 5 MG TAB PO SCH (16:33)
--- NOTE | 2019-01-25 18:04 | Consultation ---
DATE OF CONSULTATION: Cardiology Consultation Note ADDITIONAL ATTENDING PHYSICIAN: Tony Ravi MD. CLINICAL HISTORY: This is a 79-year-old white man known to me from previous evaluation, referred by Dr. Caldwell and Dr. Tony Ravi for cardiovascular evaluation in a setting of bradycardia following TURP procedure. This patient has no history of hypothyroidism. His TSH is in normal range. Past history of cardiomyopathy, ejection fraction in the range of 40%. There is history of coronary artery disease with cardiac catheterization showing ostial 30% left main as well as 40% stenosis in the right coronary artery in 2015. There is history of severe aortic stenosis, treated with aortic valve replacement in 2015. MEDICATIONS: At home included Lasix 20 mg per day, amlodipine 5 mg per day, omeprazole 40 mg per day, Atorvastatin 10 mg per day, aspirin 81 mg per day. Because he has a tissue valve, he is not on anticoagulants. PAST MEDICAL HISTORY: Also remarkable for chronic kidney disease stage 3. Creatinine 1.29, GFR of 58. He has history of syncope, but that was attributed to aortic stenosis prior to aortic valve replacement. Since that time, he has not had any syncopal spells. He has history of hypertension, hyperlipidemia, nonsustained ventricular tachycardia at 103 beats per minute, and benign prostatic hypertrophy with TURP during this hospitalization PAST SURGICAL HISTORY: Include a TURP this hospitalization, intestinal cancer, fracture of the right leg, hemorrhoidectomy, herniorrhaphy, cataract resection, aortic valve replacement with tissue valve in 2014, cholecystectomy, Dr. Nishant Méndez, 12/03/2018. FAMILY HISTORY: Remarkable for his father, who from infection and injury. Mother, who had natural . Sister of stomach illness. Family history is noncontributory. PERSONAL AND SOCIAL HISTORY: Denies smoking and drinking since 1999. ALLERGIES: NONE KNOWN. REVIEW OF SYSTEMS: Negative. PHYSICAL EXAMINATION: GENERAL: He is alert and coherent. VITAL SIGNS: Stable. CARDIAC: Jugular veins were not distended. S1 and S2 were regular, somewhat slow. ABDOMEN: Soft. EXTREMITIES: Show no cyanosis, clubbing, or edema. LABORATORY STUDIES: Please refer to the chart. IMPRESSION: 1. Sinus bradycardia with heart rate dropping down to 45 beats per minute compared to baseline, where he had a Holter on 11/07/2018, his heart rate dropped down to 41 beats per minute. This is bradycardia without any symptoms. He denies any dizziness, syncope, or near syncope. 2. History of aortic valve replacement with tissue valve in 2015 for severe aortic stenosis. 3. History of syncope, attributed to aortic stenosis prior to aortic valve replacement. 4. Coronary artery disease, 30% ostial left main, currently treated medically. 5. Right bundle branch block. 6. Cardiomyopathy. 7. Hypertension. 8. Hyperlipidemia. 9. History of nonsustained ventricular tachycardia at 103 beats per minute. 10. Status post transurethral resection of the prostate. 11. Multiple noncardiac surgeries mentioned above including recent cholecystectomy. RECOMMENDATIONS: Continue monitoring the patient's symptoms as well as heart rhythm. I believe he is stable for discharge if needed. Jeremi Byers MD MKJ/MODL /[id number] cc: MD Trav Sultana MD Nehemia Hampel, MD
--- NOTE | 2019-01-25 19:00 | NUR ---
RECEIVED PATIENT IN BEDSIDE SHIFT REPORT. NO PAIN REPORTED. NO S&S OF DISTRESS NOTED. PINK-TINGED URINE NOTED. BED LOCKED IN LOWEST POSITION, SIDE RAILS UPX2, CALL LIGHT IN REACH.
[2019-01-25] MEDS ORDERED: ATORVASTATIN 10 MG TAB PO SCH (21:00)
[2019-01-25] MEDS ORDERED: TAMSULOSIN HCL 0.4 MG CAP PO SCH (21:00)
--- NOTE | 2019-01-25 22:57 | NUR ---
PATIENT REPORTED A CLOT NOTED IN HIS URINE. RESUMED CBI. WILL CONTINUE TO MONITOR. Addendum: 01/26/19 at 0015 by Brina Almanzar RN URINE NOTED TO BE CLEAR, YELLOW AT THIS TIME. CBI STOPPED AGAIN. WILL CONTINUE TO MONITOR.
[2019-01-26] VITALS: BP 137/63
[2019-01-26 04:00] VITALS: BP 127/59
[2019-01-26 05:50] LABS: BASOPHILS % 0.6 % (0.0-1.0); EOSINOPHILS # (AUTO) 0.3 (0.0-0.4); EOSINOPHILS % 4.1 % (0.0-6.0); HEMATOCRIT 35.4 % (38.2-49.6); HEMOGLOBIN 12.1 g/dL (14.0-18.0); LYMPHOCYTES # (AUTO) 1.8 (1.0-3.2); LYMPHOCYTES % 25.6 % (18.0-39.1); MEAN CORPUSCULAR HEMOGLOBIN 31.8 pg (28-32); MEAN CORPUSCULAR HGB CONC 34.2 g/dL (31-35); MEAN CORPUSCULAR VOLUME 93.2 fL (81-99); MONOCYTES # (AUTO) 0.7 (0.2-0.8); MONOCYTES % 9.4 % (4.4-11.3); NEUTROPHILS # (AUTO) 4.1 (2.1-6.9); NEUTROPHILS % 60.2 % (38.7-80.0); PLATELET COUNT 125 x10e3/uL (140-360); RED CELL DISTRIBUTION WIDTH 13.3 % (11.7-14.4)
[2019-01-26 06:12] LABS: ANION GAP 11.7 mmol/L (8-16); CALCIUM 8.9 mg/dL (8.4-10.2); CREATININE, SERUM 1.36 mg/dL (0.72-1.25); POTASSIUM 4.7 mmol/L (3.5-5.1)
[2019-01-26 06:56] LABS: PLATELET ESTIMATE MODERATELY DECREASED
[2019-01-26 06:57] LABS: PLATELET MORPHOLOGY COMMENT FEW LARGE; RBC MORPHOLOGY COMMENT NORMAL
[2019-01-26 07:29] VITALS: BP 136/75
[2019-01-26 07:31] VITALS: BP 136/75
[2019-01-26] MEDS: AMLODIPINE BESYLATE 5 MG TAB PO SCH (07:53)
[2019-01-26] MEDS: OLMESARTAN 20 MG TAB PO SCH (07:53)
[2019-01-26] MEDS ORDERED: AUGMENTIN 500-1 EACH PO (09:00)
--- NOTE | 2019-01-26 09:50 | NUR ---
DISCHARGE INSTRUCTIONS AND PRESCRIPTIONS GIVEN PT VERBALIZED UNDERSTANDING TEACHING TO TRANSFER FROM LEG BAG GIVEN INSTRUCTED TO DC REED ON WEDNESDAY. UNDERSTANDS HOW TO REMOVE IV DC PRESSURE DRESSING APPLIED AND TAPED PT IS READY FOR DC AT THIS TIME
--- NOTE | 2019-01-26 10:15 | NUR ---
PT OFF UNIT TO HOME AT THIS TIME
== END 2019-01-26 10:15 | disposition home or self-care (01) | DRG 713 ==
LOC: OR 07:41 → PACU V 14:57 → MED/SURG 16:28
PROVIDERS: ADMIT Internal Medicine; ATTEND Internal Medicine
PROC: BT141ZZ Fluoroscopy of Kidneys, Ureters and Bladder using Low Osmolar Contrast (ICD-10-PCS; 2019-01-24)
PROC: 0V508ZZ Destruction of Prostate, Via Natural or Artificial Opening Endoscopic (ICD-10-PCS; principal; 2019-01-24 10:00)
PROC: 0VC08ZZ Extirpation of Matter from Prostate, Via Natural or Artificial Opening Endoscopic (ICD-10-PCS; 2019-01-24 10:00)
DX: N40.1 Benign prostatic hyperplasia with lower urinary tract symptoms (principal); N39.0 Urinary tract infection, site not specified; N13.8 Other obstructive and reflux uropathy; I42.9 Cardiomyopathy, unspecified; Z88.6 Allergy status to analgesic agent; Z88.1 Allergy status to other antibiotic agents; Z88.5 Allergy status to narcotic agent; R00.1 Bradycardia, unspecified; Z95.2 Presence of prosthetic heart valve; I25.10 Atherosclerotic heart disease of native coronary artery without angina pectoris; I45.10 Unspecified right bundle-branch block; I10 Essential (primary) hypertension; E78.5 Hyperlipidemia, unspecified; Z90.49 Acquired absence of other specified parts of digestive tract; R31.21 Asymptomatic microscopic hematuria; N32.3 Diverticulum of bladder; N42.0 Calculus of prostate; K21.9 Gastro-esophageal reflux disease without esophagitis; G47.33 Obstructive sleep apnea (adult) (pediatric)
CPT/HCPCS: 36415; 71046; 74420; 80048; 80061; 83036; 84443; 85025; 93005; C1758; J0690; J1100; J2001; J2405; J3010; J3260